=== PATIENT | female | born 1990 | race Caucasian/White ===

== ENCOUNTER → 2020-03-29 | Day surgery (SDC) | payer OTHER ==
[2020-03-23 13:16] LABS: BASOPHILS # (AUTO) 0.1 (0.0-0.1); BASOPHILS % 0.6 % (0.0-1.0); EOSINOPHILS # (AUTO) 0.2 (0.0-0.4); EOSINOPHILS % 2.6 % (0.0-6.0); HEMATOCRIT 31.7 % (34.2-44.1); HEMOGLOBIN 9.4 g/dL (12.0-16.0); LYMPHOCYTES # (AUTO) 2.7 (1.0-3.2); LYMPHOCYTES % 30.2 % (18.0-39.1); MEAN CORPUSCULAR HEMOGLOBIN 23.4 pg (28-32); MEAN CORPUSCULAR HGB CONC 29.7 g/dL (31-35); MEAN CORPUSCULAR VOLUME 79.1 fL (81-99); MONOCYTES # (AUTO) 0.6 (0.2-0.8); MONOCYTES % 6.7 % (4.4-11.3); NEUTROPHILS # (AUTO) 5.3 (2.1-6.9); NEUTROPHILS % 59.6 % (38.7-80.0); PLATELET COUNT 408 x10e3/uL (140-360); RED BLOOD COUNT 4.01 x10e6/uL (3.6-5.1); RED CELL DISTRIBUTION WIDTH 15.1 % (11.7-14.4)
[2020-03-23 13:34] LABS: ANION GAP 11.2 mmol/L (8-16); BLOOD UREA NITROGEN 11 mg/dL (7-26); BUN/CREATININE RATIO 12 (6-25); CALCIUM 8.7 mg/dL (8.4-10.2); CARBON DIOXIDE 23 mmol/L (22-29); CHLORIDE 106 mmol/L (98-107); CREATININE, SERUM 0.91 mg/dL (0.57-1.11); EST GLOMERULAR FILTRATION RATE > 60 ML/MIN (60-); GLUCOSE 87 mg/dL (74-118); POTASSIUM 4.2 mmol/L (3.5-5.1); SODIUM 136 mmol/L (136-145)
[2020-03-23 13:42] LABS: HYPOCHROMASIA MODERATE
[2020-03-23 13:43] LABS: RBC MORPHOLOGY COMMENT ABNORMAL
[~2020-03-29] MED LIST: ADVAIR 250-501 EACH INH; BUPIVACAINE 0.25% 30ML SDV INJ ONE; BUPIVACAINE 0.25%/EPI 30ML SDV INJ ONE; CETIRIZINE HCL10 MG PO; FENTANYL CITRATE/PF 100MCG/2 ML INJ ONE; KETOROLAC TROMETHAMINE 30 MG/ML VIAL ONE; LIDOCAINE HCL 1% LOCAL INJ 20 ML VIAL ONE; LIDOCAINE HCL 2% LOCAL INJ 5 ML SDV VIAL INJ ONE; METOCLOPRAMIDE HCL 10 MG/2ML VIAL ONE; MIDAZOLAM HCL 2 MG/2 ML VIAL ONE; ONDANSETRON HCL INJ 2MG/ML 2ML 2 MG/ML VIAL ONE; PROPOFOL IV EMULSION 10 MG/ML 20 ML VIAL ONE; SEVOFLURANE INHAL SOLN 250 ML PEN BTL ONE
--- NOTE | 2020-03-29 10:35 | Operative Report ---
DATE OF PROCEDURE: 03/29/2020 SURGEON: Phoenix Waite MD PREOPERATIVE DIAGNOSIS: Mass of the right upper arm. POSTOPERATIVE DIAGNOSIS: Mass of the right upper arm. OPERATION PERFORMED: Resection of mass to the right upper arm. ANESTHESIA: General. COMPLICATIONS: None. ESTIMATED BLOOD LOSS: Minimal. DESCRIPTION OF PROCEDURE: With the patient lying in bed in the supine position under good general anesthesia, the right arm was prepped with Betadine solution and draped in the usual manner. The area overlying the lesion in the upper arm was then infiltrated with 0.25% Marcaine. An incision was made and immediately in the subcutaneous tissue multilobulated lipomatous mass was encountered, which was well encapsulated. This was slowly and carefully from all the surrounding structures all the way down to the fascia and totally and completely removed and sent for pathological examination. Hemostasis was ascertained. The subcutaneous tissue was then reapproximated with interrupted sutures of 3-0 Vicryl and the skin was closed with subcuticular 5-0 Vicryl. Benzoin, Steri-Strips and dressings were applied. The sponge, lap, and needle count were correct. The patient tolerated the procedure well and returned to the recovery room in stable condition. Phoenix Waite MD JLR/MODL /[id number]
[2020-03-29 10:45] VITALS: BP 104/68
== END | disposition home or self-care (01) ==
LOC: OR 07:25
PROVIDERS: ATTEND Surgery
DX: D17.79 Benign lipomatous neoplasm of other sites (principal); J45.909 Unspecified asthma, uncomplicated; Z01.812 Encounter for preprocedural laboratory examination; Z11.59 Encounter for screening for other viral diseases; Z87.01 Personal history of pneumonia (recurrent)
CPT/HCPCS: 24071; 36415; 80048; 81025; 85025; 88304; J1885; J2001; J2250; J2405; J2704; J2765; J3010; U0002

== ENCOUNTER → 2024-05-10 | Day surgery (SDC) | payer OTHER ==
[2024-05-05 12:23] LABS: BASOPHILS % 0.2 % (0.0-1.0); EOSINOPHILS # (AUTO) 0.1 (0.0-0.4); EOSINOPHILS % 1.2 % (0.0-6.0); HEMATOCRIT 38.3 % (34.2-44.1); HEMOGLOBIN 11.8 g/dL (12.0-16.0); LYMPHOCYTES % 23.7 % (18.0-39.1); MEAN CORPUSCULAR HEMOGLOBIN 26.5 pg (28-32); MEAN CORPUSCULAR HGB CONC 30.8 g/dL (31-35); MEAN CORPUSCULAR VOLUME 86.1 fL (81-99); MONOCYTES # (AUTO) 0.2 (0.2-0.8); MONOCYTES % 4.8 % (4.4-11.3); NEUTROPHILS # (AUTO) 2.9 (2.1-6.9); NEUTROPHILS % 69.9 % (38.7-80.0); PLATELET COUNT 299 x10e3/uL (140-360); RED BLOOD COUNT 4.45 x10e6/uL (3.6-5.1); RED CELL DISTRIBUTION WIDTH 15.1 % (11.7-14.4); WHITE BLOOD COUNT 4.18 x10e3/uL (4.8-10.8)
[2024-05-05 12:44] LABS: ANION GAP 12.8 mmol/L (8-16); CALCIUM 8.6 mg/dL (8.4-10.2); CREATININE, SERUM 0.85 mg/dL (0.57-1.11); POTASSIUM 3.8 mmol/L (3.5-5.1)
[~2024-05-10] MED LIST changes: -BUPIVACAINE 0.25% 30ML SDV INJ ONE; -BUPIVACAINE 0.25%/EPI 30ML SDV INJ ONE; +DEXAMETHASONE SOD PHOS INJ 4 MG/ML SDV ONE; -KETOROLAC TROMETHAMINE 30 MG/ML VIAL ONE; -LIDOCAINE HCL 1% LOCAL INJ 20 ML VIAL ONE; +LISPRO SQ; -METOCLOPRAMIDE HCL 10 MG/2ML VIAL ONE; +PRAMIPEXOLE D0.25 MG PO; +PROPOFOL IV EMULSION 10 MG/ML 50 ML VIAL IV ONE; +PROPOFOL IV EMULSION 50 ML IV ONE; -SEVOFLURANE INHAL SOLN 250 ML PEN BTL ONE; +VENTOLIN HFA18 GM INH
[2024-05-10] MEDS: LACTATED RINGER'S 1,000 ML ONE (06:14)
[2024-05-10 08:00] VITALS: TEMP 97.8
[2024-05-10] MEDS: KETOROLAC TROMETHAMINE 30 MG/ML VIAL ONE (08:22)
[2024-05-10] MEDS: ACETAMINOPHEN/CODEINE 300MG - 30MG TAB ONE (08:30)
[2024-05-10 09:05] VITALS: BP 118/70; PULSE 76; RESP 16; O2SAT 98
== END | disposition home or self-care (01) ==
LOC: OR 05:02
PROVIDERS: ATTEND Specialist
DX: G56.02 Carpal tunnel syndrome, left upper limb (principal); D64.9 Anemia, unspecified; E11.9 Type 2 diabetes mellitus without complications; J45.909 Unspecified asthma, uncomplicated; E66.01 Morbid (severe) obesity due to excess calories; Z01.812 Encounter for preprocedural laboratory examination; Z01.818 Encounter for other preprocedural examination; Z79.899 Other long term (current) drug therapy; Z68.35 Body mass index [BMI] 35.0-35.9, adult
CPT/HCPCS: 36415; 71046; 80048; 81025; 85025; 93005; J0690; J1100; J1885; J2001; J2250; J2405